=== PATIENT | male | born 1970 | race Caucasian/White ===

== ENCOUNTER 2021-10-23 11:40 | Emergency (ER) | payer SELFPAY ==
[~2021-10-23] VITALS: Ht 172.7 cm; Wt 72.6 kg
[2021-10-23 11:40] VITALS: BP 110/47
--- NOTE | 2021-10-23 11:44 | NUR ---
BIB C/O RECTAL ABSCESS X 1 WEEK, PAIN IS 10/10 ON PAIN SCALE. AMBULATORY, [id number], PLACED ON BED
--- NOTE | 2021-10-23 12:00 | NUR ---
AT BED SIDE
[2021-10-23] MEDS ORDERED: LIDOCAINE 1% INJ 50 ML MDV IJ ONE (12:29)
--- NOTE | 2021-10-23 14:06 | NUR ---
INCISION AND DRAINAGE DONE BY DR HALL IODOFORM PACKING APPLIED.
[2021-10-23] MEDS ORDERED: SULF1TAB48 PO (14:10)
[2021-10-23] MEDS ORDERED: CEPH500C2 PO (14:10)
[2021-10-23] MEDS ORDERED: HYDR-4209 PO (14:10)
[2021-10-23] MEDS ORDERED: IBUP-1955 PO (14:10)
--- NOTE | 2021-10-23 14:25 | NUR ---
Patient discharged to home in stable condition. Written and verbal after care instructions given. Patient verbalizes understanding of instruction.
== END 2021-10-23 14:26 | disposition home or self-care (01) ==
LOC: ER 11:40
DX: K61.0 Anal abscess (principal); Z98.890 Other specified postprocedural states
CPT/HCPCS: 46050; 99284; A6403 ×2; A6407; J3490

== ENCOUNTER 2024-01-14 23:23 | Inpatient (IN) | payer BC, OTHER ==
[~2024-01-14] VITALS: Ht 177.8 cm; Wt 68.0 kg
[~2024-01-14 23:23] MED LIST: CEPH500C2 PO; HYDR-4209 PO; IBUP-1955 PO; SULF1TAB48 PO
[2024-01-15] MEDS ORDERED: MAG HYDROX/AL HYDROX/SIMETH 30 ML UDC ONE (00:10)
[2024-01-15] MEDS ORDERED: PANTOPRAZOLE 40 MG VIAL ONE (00:10)
[2024-01-15] MEDS ORDERED: ONDANSETRON HCL/PF 4 MG/2 ML VIAL ONE (00:10)
[2024-01-15] MEDS ORDERED: LIDOCAINE VISCOUS 2% UD 15 ML UDC ONE (00:10)
[2024-01-15] MEDS ORDERED: KETOROLAC TROMETHAMINE 15 MG/ML VIAL ONE (00:10)
[2024-01-15] MEDS: KETOROLAC TROMETHAMINE 15 MG/ML VIAL IV ONE (00:11)
[2024-01-15] MEDS: IV NS 0.9% 1,000 ML BAG IV ONE (00:11)
[2024-01-15] MEDS: PANTOPRAZOLE 40 MG VIAL IV ONE (00:11)
[2024-01-15] MEDS: LIDOCAINE VISCOUS 2% UD 15 ML UDC MM ONE (00:12)
[2024-01-15] MEDS: MAG HYDROX/AL HYDROX/SIMETH 30 ML UDC PO ONE (00:12)
[2024-01-15] MEDS: ONDANSETRON HCL/PF 4 MG/2 ML VIAL IVP ONE (00:12)
[2024-01-15 00:21] LABS: BASOPHILS # (AUTO) 0.1 K/uL (0.0-0.2); BASOPHILS % (AUTO) 0.4 % (0.0-2.0); EOSINOPHILS # (AUTO) 0.2 K/uL (0.0-0.7); EOSINOPHILS % (AUTO) 0.9 % (0.0-6.0); HEMATOCRIT 38 % (39-51); HEMOGLOBIN 12.4 g/dL (13.5-17.5); LYMPHOCYTES # (AUTO) 2.7 K/uL (0.8-4.8); MEAN CORPUSCULAR HEMOGLOBIN 32 PG (26.0-33.0); MEAN CORPUSCULAR HGB CONC 33 g/dl (31.0-36.0); MEAN CORPUSCULAR VOLUME 97 fL (80-96); MONOCYTES # (AUTO) 1.4 K/uL (0.1-1.30); MONOCYTES % (AUTO) 7.8 % (2.0-12.0); NEUTROPHILS # (AUTO) 13.5 K/uL (1.8-8.9); NEUTROPHILS % (AUTO) 75.9 % (43.0-81.0); PLATELET COUNT (AUTO) 427 K/uL (150-450); RED BLOOD CELL COUNT(AUTO) 3.89 MIL/uL (4.5-6.0); RED CELL DISTRIBUTION WIDTH 14.6 % (11.5-15.0); WHITE BLOOD COUNT (AUTO) 17.8 K/uL (4.3-11.0)
[2024-01-15 00:27] LABS: CALCIUM, SERUM 9.4 mg/dL (8.5-10.1); CREATININE 0.8 mg/dL (0.6-1.3); POTASSIUM 3.6 mmol/L (3.5-5.1)
[2024-01-15 00:42] LABS: ALBUMIN 3.7 g/dL (3.4-5.0); BILIRUBIN,DIRECT 0.1 mg/dL (0.0-0.2); BILIRUBIN,TOTAL 0.4 mg/dL (0.2-1.0); TOTAL PROTEIN, SERUM 7.3 g/dL (6.4-8.2)
[2024-01-15] MEDS ORDERED: CT SWABBABLE VALVE TRANS SET 1 EA INFUS.SET MC ONE (01:48)
[2024-01-15] MEDS ORDERED: IOHEXOL-300 100 ML VIAL IV ONE (01:48)
[2024-01-15] MEDS ORDERED: IV NS 0.9% 250 ML IV ONE (01:48)
[2024-01-15] MEDS ORDERED: HALOPERIDOL LACTATE INJ 5 MG/ML VIAL ONE (01:51)
[2024-01-15] MEDS: HALOPERIDOL LACTATE INJ 5 MG/ML VIAL IV ONE (01:52)
[2024-01-15 02:46] VITALS: O2SAT 98
[2024-01-15] MEDS ORDERED: ONDANSETRON HCL/PF 4 MG/2 ML VIAL IVP PRN (03:00)
[2024-01-15] MEDS ORDERED: MORPHINE SULFATE INJ 2 MG/ML DISP.SYRIN IV PRN (03:00)
[2024-01-15] MEDS ORDERED: Z GUARD REMEDY 4 OZ OINT TP PRN (03:00)
[2024-01-15] MEDS: IV NS 0.9% 1,000 ML IV PRN (04:07)
[2024-01-15 04:50] VITALS: BP 132/92; TEMP 97.3; O2SAT 95
[2024-01-15] MEDS ORDERED: CEFTRIAXONE 1GM BAG (ER ONLY) 50 ML IV ONE (06:02)
[2024-01-15] MEDS: CEFTRIAXONE 1 G in IV D5W 50 ML IV SCH (06:12)
[2024-01-15 06:50] LABS: EOSINOPHILS % (AUTO) 0.3 % (0.0-6.0); HEMOGLOBIN 11.9 g/dL (13.5-17.5); MONOCYTES # (AUTO) 1.1 K/uL (0.1-1.30)
[2024-01-15 07:01] LABS: BASOPHILS % (AUTO) 0.3 % (0.0-2.0); HEMATOCRIT 36 % (39-51); LYMPHOCYTES # (AUTO) 2.6 K/uL (0.8-4.8); LYMPHOCYTES % (AUTO) 18.3 % (20.0-44.0); MEAN CORPUSCULAR HEMOGLOBIN 32 PG (26.0-33.0); MEAN CORPUSCULAR HGB CONC 33 g/dl (31.0-36.0); MEAN CORPUSCULAR VOLUME 97 fL (80-96); MONOCYTES % (AUTO) 7.7 % (2.0-12.0); NEUTROPHILS # (AUTO) 10.2 K/uL (1.8-8.9); NEUTROPHILS % (AUTO) 73.4 % (43.0-81.0); PLATELET COUNT (AUTO) 416 K/uL (150-450); RED BLOOD CELL COUNT(AUTO) 3.73 MIL/uL (4.5-6.0); RED CELL DISTRIBUTION WIDTH 14.3 % (11.5-15.0)
[2024-01-15 07:21] LABS: THYROID STIMULATING HORMONE 0.94 uIU/mL (0.358-3.74)
[2024-01-15 07:33] LABS: ALBUMIN 2.9 g/dL (3.4-5.0); BILIRUBIN,DIRECT 0.1 mg/dL (0.0-0.2); BILIRUBIN,TOTAL 0.4 mg/dL (0.2-1.0); CALCIUM, SERUM 8.8 mg/dL (8.5-10.1); CREATININE 0.7 mg/dL (0.6-1.3); MAGNESIUM 2.1 mg/dL (1.8-2.4); PHOSPHORUS 3.6 mg/dL (2.5-4.9); POTASSIUM 3.8 mmol/L (3.5-5.1); TOTAL PROTEIN, SERUM 6.6 g/dL (6.4-8.2)
[2024-01-15 08:05] VITALS: BP 123/84; TEMP 98.1; O2SAT 96
[2024-01-15 16:00] VITALS: BP 122/94; TEMP 98.6; O2SAT 94
== END 2024-01-15 20:51 | disposition home or self-care (01) | DRG 247 ==
LOC: ER 23:27 → MED 01-15 02:51
DX: K56.609 Unspecified intestinal obstruction, unspecified as to partial versus complete obstruction (principal); Z93.0 Tracheostomy status; Z90.81 Acquired absence of spleen; Z79.899 Other long term (current) drug therapy; D72.829 Elevated white blood cell count, unspecified; D64.9 Anemia, unspecified; F12.90 Cannabis use, unspecified, uncomplicated
CPT/HCPCS: 36415; 74018; 80048-TC; 80076-TC; 82150-TC; 83605-TC; 83690-TC; 83735-TC; 84100-TC; 84443-TC; 85025-TC; A4223; G0378; J0696; J1630; J1885; J2405; J2470; J7030; J7050; J7060; Q9967